=== PATIENT | male | born 1940 ===

== ENCOUNTER 2018-03-24 09:10 | Emergency (ER) | payer MEDICARE ==
--- NOTE | 2018-03-24 11:05 | RAD ---
THREE VIEWS OF THE LEFT SHOULDER: Date: 03-24-18 Comparison: None. History: Pain, trauma. FINDINGS: There is an obliquely oriented fracture involving the midshaft of the left clavicle with associated p ost-operative hardware consistent with history of ORIF. There is no widening of the acromioclavicular or coracoclavicular interspace. There is no displaced fracture or evidence of dislocation. Linear calcific density overlies the left lung suggesting possible calcified pleural plaque. This cou ld be better assessed with follow up PA and lateral chest imaging. IMPRESSION: Incidental and post-operative findings as described above. No evidence for an acute fracture or dislo cation. POS: [facility]
== END 2018-03-24 09:50 | disposition home or self-care (01) ==
LOC: NAV ERS 09:10
DX: S40.012A Contusion of left shoulder, initial encounter (principal); I10 Essential (primary) hypertension; E11.9 Type 2 diabetes mellitus without complications; Z79.84 Long term (current) use of oral hypoglycemic drugs; V49.9XXA Car occupant (driver) (passenger) injured in unspecified traffic accident, initial encounter